=== PATIENT | female | born 1985 | race Hispanic/Latino ===

== ENCOUNTER 2022-07-07 18:41 | Emergency (ER) | payer SELFPAY ==
[~2022-07-07] VITALS: Ht 152.4 cm; Wt 51.0 kg
[2022-07-07] MEDS ORDERED: IBUPROFEN 600 MG TAB PO STA (19:06)
[2022-07-07] MEDS ORDERED: CEFTRIAXONE 1 GM VIAL IM ONE (19:15)
[2022-07-07] MEDS ORDERED: MOTRIN200 MG PO (19:22)
[2022-07-07] MEDS ORDERED: ZITHROMAX250 MG PO (19:22)
[2022-07-07] MEDS ORDERED: CEFTRIAXONE 1 GM VIAL ONE (19:32)
[2022-07-07] MEDS ORDERED: IBUPROFEN 600 MG TAB ONE (19:32)
[2022-07-07] MEDS ORDERED: CEFDINIR300 MG PO (20:46)
== END 2022-07-07 21:14 | disposition home or self-care (01) ==
LOC: FSED 18:51
DX: R50.9 Fever, unspecified (principal); J18.9 Pneumonia, unspecified organism; J98.8 Other specified respiratory disorders
CPT/HCPCS: 71045; 83518; 96372; 99283; J0696